=== PATIENT | male | born 1945 | race Caucasian/White ===

== ENCOUNTER → 2018-06-12 | Outpatient (CLI) | payer MEDICARE ==
[~2018-06-12] MED LIST: ASPIRIN81 M1 PO; CRESTOR10 MG PO; DAILY VITAMIN1 EAC3 PO; GINKGO BILOBA60 MG PO; MEGA RED PO; PANTOPRAZOLE SO40 MG PO; SUCRALFATE1 GM PO; VITAMIN D; VITAMIN D-3 PO
== END ==
LOC: SLEEP 19:35
DX: G47.33 Obstructive sleep apnea (adult) (pediatric) (principal)

== ENCOUNTER → 2018-06-19 | Outpatient (CLI) | payer MEDICARE ==
--- NOTE | 2018-06-24 17:48 | Polysomnography ---
DATE OF STUDY: June 19, 2018 HISTORY OF PRESENT ILLNESS: The patient reports snoring at night with intermittent apnea. He has excessive daytime fatigue and sometimes falls asleep during the day. INTERPRETATION: The patient came to the laboratory for a split night study. During the diagnostic portion of the study, the patient slept for 143 minutes out of 164.5 minutes. The sleep efficiency was 86.9%. The sleep onset latency was 2 minutes. Patient never achieved REM sleep. The minimal saturation was 91%. The patient spent 69.3% of the night in the supine position and the remainder of the night in the nonsupine position. The patient had 50 apneic events and 2 hypopneic events. The apnea-hypopnea index was 21.8 events per hour. During the therapeutic portion of the night, the patient slept for 283 minutes out of 289.5 minutes. The sleep efficiency was 97.8%. The sleep onset latency was 1.5 minutes. The patient spent 18.2% of the night in REM sleep. The table tender desensitized the patient to CPAP. The patient initiated CPAP at 4 cm of water pressure and gradually increased to 12 cm of water pressure. The nocturnal events were not successfully controlled with CPAP alone, and the table tender switched the patient to BiPAP. The BiPAP was then increased to 21/16. At this setting, the nocturnal events were successfully eliminated. IMPRESSION 1. Moderate obstructive sleep apnea. 2. Rapid eye movement rebound. 3. Successful treatment of obstructive sleep apnea with bilevel positive airway pressure. RECOMMENDATIONS 1. BiPAP at a setting of 21/16. 2. Avoid alcohol or sedatives prior to retiring at night. 3. Achieve and maintain an ideal body weight. 4. Follow up in 3 months to ensure efficacy and compliance with CPAP. Job#: [id number]
== END ==
LOC: SLEEP 20:05
DX: G47.33 Obstructive sleep apnea (adult) (pediatric) (principal)
CPT/HCPCS: 95811

== ENCOUNTER → 2018-08-11 | Outpatient (CLI) | payer MEDICARE ==
--- NOTE | 2018-08-11 15:28 | Diagnostic Imaging Report ---
Exam: Right knee 3 views History: Pain Comparison: None. Findings: No fracture or malalignment. Joint spaces maintained with mild osteophytosis. Trace joint effusion. Impression: No acute osseous abnormality Mild degenerative arthrosis of the knee Signed by: Dr. Bradley Adams M.D. on 08/11/2018 3:24 PM
== END ==
LOC: RAD 14:25
DX: M25.561 Pain in right knee (principal); R60.9 Edema, unspecified
CPT/HCPCS: 93970

== ENCOUNTER → 2019-02-26 | Day surgery (SDC) | payer MEDICARE ==
[2019-02-23 13:17] LABS: BASOPHILS % 0.6 % (0.0-1.0); EOSINOPHILS # (AUTO) 0.3 (0.0-0.4); HEMATOCRIT 40.9 % (38.2-49.6); HEMOGLOBIN 13.2 g/dL (14.0-18.0); LYMPHOCYTES # (AUTO) 1.4 (1.0-3.2); LYMPHOCYTES % 20.3 % (18.0-39.1); MEAN CORPUSCULAR HEMOGLOBIN 27.6 pg (28-32); MEAN CORPUSCULAR HGB CONC 32.3 g/dL (31-35); MEAN CORPUSCULAR VOLUME 85.4 fL (81-99); MONOCYTES # (AUTO) 0.6 (0.2-0.8); MONOCYTES % 8.2 % (4.4-11.3); NEUTROPHILS # (AUTO) 4.7 (2.1-6.9); NEUTROPHILS % 66.5 % (38.7-80.0); PLATELET COUNT 218 x10e3/uL (140-360); RED BLOOD COUNT 4.79 x10e6/uL (4.3-5.7); RED CELL DISTRIBUTION WIDTH 13.9 % (11.7-14.4)
[~2019-02-26] MED LIST changes: +B COMPLEX1 EACH PO; +FENTANYL CITRATE/PF 100MCG/2 ML INJ ONE; +FOLIC ACID1 MG PO; +GINKGO BILOBA40 M1 PO; +LASIX20 MG PO; +LIDOCAINE HCL 2% LOCAL INJ 5 ML SDV VIAL INJ ONE; +MIDAZOLAM HCL 2 MG/2 ML VIAL ONE; +PROPOFOL IV EMULSION 10 MG/ML 20 ML VIAL ONE; +VITAMIN E400 UNI1 PO; +fish oil
--- OUTSIDE RECORDS SUMMARY | 2019-02-26 05:38 | XMS REPORT ---
Author [facility] Address Unknown Phone Unavailable Care Team Providers [facility] Name Role Phone GINNY KAY Unavailable Unavailable Problems This patient has no known problems. Allergies, Adverse Reactions, Alerts This patient has no known allergies or adverse reactions. Medications This patient has no known medications. Results Test Description Test Time Test Comments Text Results Atomic Results Result Comments KNEE RIGHT THREE VIEWS 2018-08-11 15:23:00 [place] [address] Patient Name: LOCO HOWELL MR #: [id number] : 1945 Age/Sex: 72/M Req #: [id number] [facility] Physician: Ordered by: GINNY KAY MD Report #: [id number] Location: [facility] Room/Bed: Procedure: [id number] DX/KNEE RIGHT THREE VIEWS Exam Date: 08/11/18 Exam Time: 1510 REPORT STATUS: Signed Exam: Right knee 3 views History: Pain Comparison: None. Findings: No fracture or malalignment. Joint spaces maintained with mild osteophytosis. Trace joint effusion. Impression: No acute osseous abnormality Mild degenerative arthrosis of the knee Signed by: Dr. Tammi Rg M.D. on 08/11/2018 3:24 PM Dictated By: TAMMI RG MD 1524 Transcribed By: CARLOS on 08/11/18 1524 COPY TO: GINNY KAY MD
[2019-02-26 06:49] LABS: CALCIUM 9.3 mg/dL (8.4-10.2); CREATININE, SERUM 1.21 mg/dL (0.72-1.25)
[2019-02-26 08:45] VITALS: BP 121/64
--- NOTE | 2019-02-26 14:13 | Operative Report ---
DATE OF PROCEDURE: 02/26/2019 SURGEON: Alexis Forman MD PROCEDURE: Esophagogastroduodenoscopy with biopsies. INDICATIONS FOR PROCEDURE: History of acid reflux, history of Obrien's esophagus. MEDICATIONS: The patient was done under MAC, please see anesthesiologist's note. PROCEDURE IN DETAIL: With the patient in left lateral decubitus position, flexible fiberoptic Olympus gastroscope was introduced into the esophagus under direct visualization without any difficulty. A large scar was noted in the distal esophagus reflecting a well-healed ulcer. Obrien's epithelium was noted in the distal esophagus, there was a 1 cm segment extending proximally from the GE junction and tongues with a maximal extension of 3 cm. Four quadrant biopsies were obtained from the segment and biopsies were obtained from the tongues of Obrien's mucosa. The scope was then advanced with ease into the stomach traversing a small sliding hiatal hernia. Mucosa overlying the antrum and the body revealed some patchy erythema and low-grade edema and biopsies were obtained and sent to stain for H pylori. Pylorus was of normal contour and shape, it was intubated with ease and the scope was advanced all the way to the second portion of the duodenum. The scope was then withdrawn slowly and mucosa overlying the proximal second portion and the duodenal bulb appeared to be within normal limits. The scope was then withdrawn back into the stomach and retroflexed and mucosa overlying the fundus and the cardia appeared to be within normal limits. The scope was then straightened out, it was subsequently withdrawn. The patient tolerated procedure well. IMPRESSION: 1. Large scar in distal esophagus representing well-healed ulcer. 2. Obrien's esophagus C1M3, biopsies obtained. 3. Small sliding hiatal hernia. 4. Gastritis, biopsied, biopsies sent to stain for H pylori. PLAN: Follow up histology. Continue Protonix 40 mg one p.o. a.c. b.i.d. and Carafate 1 g p.o. a.c. t.i.d. and at bedtime. Alexis Forman MD [facility] [place][id number] cc: Foster Forman MD
== END | disposition home or self-care (01) ==
LOC: OR 05:31
PROVIDERS: ATTEND Internal Medicine Gastroenterology
DX: K29.70 Gastritis, unspecified, without bleeding (principal); K22.70 Barrett's esophagus without dysplasia; K21.0 Gastro-esophageal reflux disease with esophagitis; K44.9 Diaphragmatic hernia without obstruction or gangrene; G47.33 Obstructive sleep apnea (adult) (pediatric); I10 Essential (primary) hypertension; R00.1 Bradycardia, unspecified; Z01.810 Encounter for preprocedural cardiovascular examination; Z01.812 Encounter for preprocedural laboratory examination; Z79.82 Long term (current) use of aspirin
CPT/HCPCS: 36415 ×2; 43239; 80048; 85025; 88305; 88312; 93005; J2001; J2250; J2704; J3010

== ENCOUNTER → 2020-06-06 | Outpatient (CLI) | payer MEDICARE ==
[~2020-06-06] MED LIST changes: -FENTANYL CITRATE/PF 100MCG/2 ML INJ ONE; -LIDOCAINE HCL 2% LOCAL INJ 5 ML SDV VIAL INJ ONE; -MIDAZOLAM HCL 2 MG/2 ML VIAL ONE; -PROPOFOL IV EMULSION 10 MG/ML 20 ML VIAL ONE
== END ==
LOC: MRI 07:37
DX: R20.0 Anesthesia of skin (principal); R29.898 Other symptoms and signs involving the musculoskeletal system; R53.1 Weakness; M48.02 Spinal stenosis, cervical region; M51.34 Other intervertebral disc degeneration, thoracic region
CPT/HCPCS: 72141

== ENCOUNTER → 2020-08-02 | Day surgery (SDC) | payer MEDICARE ==
[2020-07-29 14:31] LABS: BASOPHILS % 0.6 % (0.0-1.0); EOSINOPHILS # (AUTO) 0.3 (0.0-0.4); EOSINOPHILS % 4.9 % (0.0-6.0); HEMATOCRIT 39.1 % (38.2-49.6); HEMOGLOBIN 12.6 g/dL (14.0-18.0); LYMPHOCYTES # (AUTO) 1.3 (1.0-3.2); MEAN CORPUSCULAR HEMOGLOBIN 27.2 pg (28-32); MEAN CORPUSCULAR HGB CONC 32.2 g/dL (31-35); MEAN CORPUSCULAR VOLUME 84.4 fL (81-99); MONOCYTES # (AUTO) 0.6 (0.2-0.8); MONOCYTES % 9.8 % (4.4-11.3); NEUTROPHILS # (AUTO) 4.2 (2.1-6.9); NEUTROPHILS % 64.5 % (38.7-80.0); PLATELET COUNT 204 x10e3/uL (140-360); RED BLOOD COUNT 4.63 x10e6/uL (4.3-5.7); RED CELL DISTRIBUTION WIDTH 13.7 % (11.7-14.4)
[2020-07-29 14:52] LABS: ANION GAP 13.3 mmol/L (8-16); CALCIUM 8.6 mg/dL (8.4-10.2); CREATININE, SERUM 1.29 mg/dL (0.72-1.25); POTASSIUM 4.3 mmol/L (3.5-5.1)
[~2020-08-02] MED LIST changes: +ATROPINE SULFATE 1 MG/ML VIAL ONE; +BUPIVACAINE HCL 0.5% 10ML MPF VIAL INJ ONE; +CEFAZOLIN SOD 1 GM/NS 50ML 50 ML IV ONE; +DEXAMETHASONE SOD PHOS INJ 4 MG/ML VIAL ONE; +LIDOCAINE HCL 2% LOCAL INJ 5 ML SDV VIAL INJ ONE; +MIDAZOLAM HCL 2 MG/2 ML VIAL ONE; +MUPIROCIN 2% OINT 22 GM TUBE ONE; +ONDANSETRON HCL INJ 2MG/ML 2ML 2 MG/ML VIAL ONE; +PROPOFOL IV EMULSION 10 MG/ML 20 ML VIAL ONE; +SEVOFLURANE INHAL SOLN 250 ML PEN BTL ONE
[2020-08-02 08:45] VITALS: BP 127/72
== END | disposition home or self-care (01) ==
LOC: OR 05:54
PROVIDERS: ATTEND Plastic Surgery
DX: G56.01 Carpal tunnel syndrome, right upper limb (principal); M65.831 Other synovitis and tenosynovitis, right forearm; G47.33 Obstructive sleep apnea (adult) (pediatric); R00.1 Bradycardia, unspecified; E78.5 Hyperlipidemia, unspecified; I25.10 Atherosclerotic heart disease of native coronary artery without angina pectoris; Z01.810 Encounter for preprocedural cardiovascular examination; Z01.812 Encounter for preprocedural laboratory examination; Z01.818 Encounter for other preprocedural examination; Z20.828 Contact with and (suspected) exposure to other viral communicable diseases; Z98.61 Coronary angioplasty status; Z79.82 Long term (current) use of aspirin
CPT/HCPCS: 25115; 36415; 71046; 80048; 85025; 93005; J0461; J0690; J1100; J2001; J2250; J2405; J2704; U0002

== ENCOUNTER → 2020-08-16 | Day surgery (SDC) | payer MEDICARE ==
[~2020-08-16] MED LIST changes: -ATROPINE SULFATE 1 MG/ML VIAL ONE; -BUPIVACAINE HCL 0.5% 10ML MPF VIAL INJ ONE; +BUPIVACAINE HCL 0.5% INJ 30 ML VIAL INJ ONE; -CEFAZOLIN SOD 1 GM/NS 50ML 50 ML IV ONE; +GLYCOPYRROLATE INJ 0.2 MG/ML VIAL ONE; +KETOROLAC TROMETHAMINE 30 MG/ML VIAL ONE; -MIDAZOLAM HCL 2 MG/2 ML VIAL ONE
[2020-08-16] MEDS: CEFAZOLIN SOD 1 GM/NS 50ML 50 ML IV ONE (06:35)
[2020-08-16 09:00] VITALS: BP 128/77
== END | disposition home or self-care (01) ==
LOC: OR 05:57
PROVIDERS: ATTEND Plastic Surgery
DX: G56.02 Carpal tunnel syndrome, left upper limb (principal); M65.832 Other synovitis and tenosynovitis, left forearm; G47.33 Obstructive sleep apnea (adult) (pediatric); I25.10 Atherosclerotic heart disease of native coronary artery without angina pectoris; Z01.812 Encounter for preprocedural laboratory examination; Z20.828 Contact with and (suspected) exposure to other viral communicable diseases; Z79.82 Long term (current) use of aspirin; Z79.899 Other long term (current) drug therapy
CPT/HCPCS: 25115; J0690; U0002; J1100; J1885; J2001; J2405

== ENCOUNTER → 2021-02-01 | Outpatient (CLI) | payer MEDICARE ==
[~2021-02-01] MED LIST changes: -BUPIVACAINE HCL 0.5% INJ 30 ML VIAL INJ ONE; -DEXAMETHASONE SOD PHOS INJ 4 MG/ML VIAL ONE; -GLYCOPYRROLATE INJ 0.2 MG/ML VIAL ONE; -KETOROLAC TROMETHAMINE 30 MG/ML VIAL ONE; -LIDOCAINE HCL 2% LOCAL INJ 5 ML SDV VIAL INJ ONE; -MUPIROCIN 2% OINT 22 GM TUBE ONE; -ONDANSETRON HCL INJ 2MG/ML 2ML 2 MG/ML VIAL ONE; -PROPOFOL IV EMULSION 10 MG/ML 20 ML VIAL ONE; -SEVOFLURANE INHAL SOLN 250 ML PEN BTL ONE
== END ==
LOC: RAD 09:18
DX: M25.551 Pain in right hip (principal)

== ENCOUNTER → 2021-03-13 | Outpatient (CLI) | payer MEDICARE | LOC: MRI 07:26 | DX: M25.551 Pain in right hip (principal) ==

== ENCOUNTER → 2022-11-22 | Day surgery (SDC) | payer MEDICARE ==
[~2022-11-22] MED LIST changes: +ATROPINE SULFATE 1 MG/ML VIAL ONE; +GLYCOPYRROLATE INJ 0.2 MG/ML VIAL ONE; +LACTATED RINGER'S 1,000 ML ONE; +LIDOCAINE HCL 2% LOCAL INJ 5 ML SDV VIAL INJ ONE; +MELOXICAM7.5 MG PO; +MIDAZOLAM HCL 2 MG/2 ML VIAL ONE; +OMEGA 3 1,0001 EACH PO; +POVIDONE IODINE 0.05% 0.05 % ML PO ONE; +PREVAGEN PO; +PROPOFOL IV EMULSION 10 MG/ML 20 ML VIAL ONE; +PROPOFOL IV EMULSION 100 ML IV ONE
[2022-11-22 10:45] VITALS: BP 117/66
== END | disposition home or self-care (01) ==
LOC: OR 06:48
PROVIDERS: ATTEND Internal Medicine Gastroenterology
DX: K22.70 Barrett's esophagus without dysplasia (principal); D12.2 Benign neoplasm of ascending colon; K29.50 Unspecified chronic gastritis without bleeding; K20.90 Esophagitis, unspecified without bleeding; K21.9 Gastro-esophageal reflux disease without esophagitis; K44.9 Diaphragmatic hernia without obstruction or gangrene; K57.30 Diverticulosis of large intestine without perforation or abscess without bleeding; K64.8 Other hemorrhoids; Z01.810 Encounter for preprocedural cardiovascular examination; Z79.82 Long term (current) use of aspirin; Z79.899 Other long term (current) drug therapy; Z80.0 Family history of malignant neoplasm of digestive organs
CPT/HCPCS: 43239; 45380; 88305; 88342; 93005; J0461; J2001; J2250; J2704 ×2; J7121; 45378; 88312